=== PATIENT | female | born 1970 | race Caucasian/White ===

== ENCOUNTER 2020-07-27 11:22 | Outpatient (CLI) | payer OTHER, SELFPAY ==
--- NOTE | ~2020-07-27 | CT_ITS ---
EXAMINATION: CT abdomen pelvis wo con DATE: 07/27/2020 11:46 INDICATION: Acute left flank pain TECHNIQUE: Computed tomography (CT) of the abdomen and pelvis was performed without intravenous contr ast. The dose-length product (DLP) was 1043.48 mGy-cm. Automated exposure control and iterative recon struction technique were employed. COMPARISON: None FINDINGS: The heart size is normal. There is a 3 mm nodule of the right lower lobe, most likely old g ranulomatous disease. The gallbladder is surgically absent. Punctate calcifications in an otherwise n ormal spleen likely represent healed granulomatous disease. The liver, pancreas, and adrenal glands a re normal. The right kidney is unremarkable. There is a 7 mm stone in the lower pole of the left kidn ey. No stones are present in the ureters or bladder. There is no hydronephrosis or hydroureter. No pa thologically enlarged abdominal or pelvic lymph nodes are identified. There is no free intraperitonea l gas or evidence of bowel obstruction. There is mild lumbar spondylosis. IMPRESSION: 1. 7 mm stone in the lower pole of the left kidney. Reviewed, dictated and finalized at location B.
--- NOTE | ~2020-07-27 | XR_ITS ---
EXAMINATION: XR abdomen/kub 1V INDICATION: Left flank pain TECHNIQUE: Supine views of the abdomen were obtained on 2 radiographs. COMPARISON: None FINDINGS: A 7 mm stone is present in the lower pole of the left kidney. No additional abnormal calcif ications are identified. There are cholecystectomy clips in the right upper quadrant. The bowel gas p attern is normal. IMPRESSION: 1. Left nephrolithiasis. Reviewed, dictated and finalized at location B. IMPRESSION: 1. Left nephrolithiasis.
== END 2020-07-27 11:23 ==
PROVIDERS: Visit Provider Nurse Practitioner Family
DX: R10.9 Unspecified abdominal pain (principal); N20.0 Calculus of kidney; R39.15 Urgency of urination
CPT/HCPCS: 74018; 74176

== ENCOUNTER 2020-08-08 07:53 | Outpatient (CLI) | payer OTHER, SELFPAY ==
[2020-08-08 08:30] LABS: INR 0.9; Prothrombin Time 13.1 Seconds (11.1-14.7)
[2020-08-08 08:31] LABS: Partial Thromboplastin Time 30.7 SECONDS (22.3-36.8)
== END 2020-08-08 07:54 | disposition home or self-care (01) ==
LOC: ANHSURGERY 07:57
PROVIDERS: PCP Family Medicine; Visit Provider Urology
DX: Z01.812 Encounter for preprocedural laboratory examination (principal); N20.0 Calculus of kidney
CPT/HCPCS: 36415; 85610; 85730; 87077; 87086; 87088; 87186

== ENCOUNTER → 2020-08-09 00:36 | Outpatient (CLI) | payer OTHER, SELFPAY ==
[2020-08-09 20:46] LABS: SARS-CoV-2 RNA PCR Negative
== END ==
PROVIDERS: PCP Family Medicine; Visit Provider Urology
DX: Z01.812 Encounter for preprocedural laboratory examination (principal); Z20.822 Contact with and (suspected) exposure to COVID-19
CPT/HCPCS: C9803; U0003; U0005

== ENCOUNTER 2020-08-29 11:29 | Outpatient (CLI) | payer OTHER, SELFPAY ==
[2020-08-29 12:04] LABS: Prothrombin Time 13.7 Seconds (11.1-14.7)
[2020-08-29 12:05] LABS: Partial Thromboplastin Time 23.4 SECONDS (22.3-36.8)
== END 2020-08-29 11:30 | disposition home or self-care (01) ==
LOC: ANHSURGERY 11:33
PROVIDERS: PCP Family Medicine; Visit Provider Urology
DX: Z01.818 Encounter for other preprocedural examination (principal); N20.0 Calculus of kidney
CPT/HCPCS: 36415; 85610; 85730; 87086; 87088

== ENCOUNTER → 2020-08-30 04:46 | Outpatient (CLI) | payer OTHER, SELFPAY ==
[2020-08-30 20:06] LABS: SARS-CoV-2 RNA PCR Negative
== END ==
PROVIDERS: PCP Family Medicine; Visit Provider Urology
DX: Z01.818 Encounter for other preprocedural examination (principal); N20.0 Calculus of kidney
CPT/HCPCS: C9803; U0003; U0005

== ENCOUNTER 2020-09-02 03:24 | Day surgery (SDC) | payer OTHER, SELFPAY ==
[2020-08-01 09:41] VITALS: BMI 39.4
--- NOTE | 2020-08-19 09:53 | PC.NURSE ---
Pt states no changes in health history or medications since previous interview. New Covid date/time and pre-op instructions reviewed with pt. Pt denies any questions at this time.
--- NOTE | 2020-08-25 13:32 | PC.NURSE ---
Pt states no changes in health history since time of interview. Medications updated. New Covid date/time and pre-op instructions reviewed with pt. Pt denies any questions at this time.
--- NOTE | 2020-08-26 08:42 | P.HP_ITS ---
History of Present Illness History of Present Illness Consent: Risks, benefits, and alternatives have been discussed and questions answered. Patient agrees to proceed with procedure. Chief complaint: left renal stone Narrative: Naya May is a 50 year old female He was diagnosed with a kidney stone 5 years ago never sought treatment. She notably she has ever passed stone. She recently underwent evaluation for lower urinary tract symptoms. CT imaging shows a persistent 7 mm left lower pole calcified renal calculus. After discussion of options he has elected for ESWL. she is aware of the risk including, but not limited to, failure to completely eradicate stone, renal injury and perinephric hematoma. Review of Systems Cardiovascular: Cardiovascular: Denies chest pain, Denies lightheadedness, Denies palpitations and Denies dyspnea Respiratory: Respiratory: Denies dyspnea Gastrointestinal: Gastrointestinal: Denies diarrhea, Denies nausea and Denies vomiting Genitourinary: Genitourinary: Denies hematuria and Denies dysuria Endocrine: Endocrine: Denies palpitations [facility] Surgical History History of cholecystectomy History of partial hysterectomy Family History Family History Mother Family history of lung cancer Family history of malignant neoplasm of breast in first degree relative Hypertension Grandparent Family history of malignant neoplasm of breast Family history of malignant neoplasm of breast in first degree relative Sibling Depression Hypertension Father Hypertension Other Family history of allergic disorder Social History Social History Alcohol intake: current Drinks per week: 6 Substance use: never Substance use type: does not use Spiritual care concerns: No Meds Home Medications and Allergies Home Medications Medication Instructions Recorded Confirmed Type venlafaxine 150 mg 150 mg PO DAILY #30 cap 08/10/20 08/25/20 Rx capsule,extended release 24 hr sulfamethoxazole-trimethoprim 1 tablet PO DAILY 08/25/20 08/25/20 History Allergies Allergy/AdvReac Type Severity Reaction Status Date / Time codeine Allergy Unknown Itching Verified 08/25/20 13:32 Penicillins Allergy Unknown Skin Verified 08/25/20 13:32 Reaction venom-honey bee Allergy Unknown ANAPHYLAXIS Verified 08/25/20 13:32 Exam Const: General: no acute distress Resp: Effort & Inspection: normal respiratory effort GI: Inspection: non-distended GI Palp: No abdominal tenderness and No Guarding due to palpation present (GI) Auscultation: normal bowel sounds Assessment and Plan Assessment and plan (1) Left renal stone: Code(s): N20.0 - Calculus of kidney Status: Acute Assessment and Plan: * Left ESWL
--- NOTE | 2020-09-01 12:25 | WPDANESEPPF ---
Anes - Initial Pre Proc Eval Procedure: Operation Date: 09/02/20 09:30 Proposed Procedures p Left Renal Extracorporeal Shock Wave Lithotripsy - Dario Bourgeois MD Date/Time: 09/01/20 12:25 Surgeon: Dario Bourgeois MD Pre Op Diagnosis: left renal stone Patient Data Age: 50 Gender: F Height: 1.63 m Weight: 104.3 kg Allergies Allergy/AdvReac Type Severity Reaction Status Date / Time venom-honey bee Allergy Severe ANAPHYLAXIS Verified 09/02/20 07:41 codeine AdvReac Mild Itching Verified 09/02/20 07:41 Penicillins AdvReac Mild Skin Verified 09/02/20 07:41 Reaction Home Medications Medication Instructions Recorded Confirmed Type venlafaxine 150 mg 150 mg PO DAILY #30 cap 08/10/20 09/02/20 Rx capsule,extended release 24 hr sulfamethoxazole-trimethoprim 1 tablet PO DAILY 08/25/20 09/02/20 History Patient hx anesthesia problems: none Family hx anesthesia problems: none PMFSH Past Medical History Medical History (Updated 09/01/20 @ 12:25 by Adelso Thomas DO) Anxiety Depression Neuropathy Surgical History Surgical History History of cholecystectomy History of partial hysterectomy Family History Family History Mother Family history of lung cancer Family history of malignant neoplasm of breast in first degree relative Hypertension Grandparent Family history of malignant neoplasm of breast Family history of malignant neoplasm of breast in first degree relative Sibling Depression Hypertension Father Hypertension Other Family history of allergic disorder Social History Social History Alcohol intake: current Drinks per week: 6 Substance use: never Substance use type: does not use Living arrangements: with family Spiritual care concerns: No Anes - Eval Final PreProcedure Day of Procedure 09/01/20 12:25 Patient weight: obese Heart: regular rate and rhythm Lungs: clear to auscultation and normal air movement Airway: Mallampati scale class III Neurological: alert and oriented Last oral intake: >/= 8 hours ASA classification: III Emergent: no Anesthetic plan: proceed Anesthesia type and monitoring: general LMA and standard monitoring Informed Consent: The patient's anesthetic plan and its attendant risks and benefits were discussed with the patient/family/POA. Questions were solicited and answers provided to the satisfaction of the patient/family/POA.
[2020-09-02] VITALS (7 sets, daily range): BP systolic 102–131; BP diastolic 70–84; PULSE 67–91; RESP 10–20; TEMP 36.3–36.6; O2SAT 98–100
--- NOTE | ~2020-09-02 | XR_ITS ---
EXAMINATION: XR abdomen/kub 1V DATE: 09/02/2020 07:35 INDICATION: Left kidney stone. TECHNIQUE: A supine view of the abdomen on 2 radiographs was obtained. COMPARISON: CT abdomen and pelvis 07/27/2020 FINDINGS: There are no dilated loops of bowel. Surgical clips in the right upper quadrant are likely from cholecystectomy. There is a 6 mm stone in left kidney. IMPRESSION: 1. 6 mm stone in left kidney. Reviewed, dictated and finalized at location A.
--- NOTE | 2020-09-02 07:13 | WPDHPUPDATE1 ---
History and Physical Update Update Date/Time: 09/02/20 07:13 History and Physical has been reviewed, including an updated exam of the patient. There are NO changes in the patient's condition. Risks, benefits, and alternatives have been discussed and questions answered. Patient agrees to proceed with procedure.
[2020-09-02] MEDS: LACTATED RINGERS 1,000 ML 30 ML IV CONT ×2 (07:55→11:21)
[2020-09-02] MEDS: ceFAZolin 2 GM/D5W 50 ML 2 GM/50 ML BAG IVPB (09:57)
--- NOTE | 2020-09-02 10:17 | PM.PROC ---
Procedure Note - Detailed Date of procedure: 09/02/20 Pre-op diagnosis: left renal stone Post-op diagnosis: same Procedure performed: Left ESWL Description of procedure: The patient was brought to the operative suite where she was placed in the supine position on the Dornier lithotripsy table. The focal point of the lithotripter was placed at a 8mm calculus. A total of 2500 shocks were delivered at a power setting of 4. There appeared to be good fragmentation of the stone. The patient tolerated the procedure well and was taken to the recovery room in good condition. Anesthesia: GLMA Surgeon: Dario Bourgeois MD Estimated blood loss (mL): 0 Drains: No Packing: No Pathology: none sent Complications: No immediate complications Condition: stable Disposition: PACU
[2020-09-02] MEDS: fentaNYL CITRATE INJ (*CRX) 100 MCG/2 ML VIAL 25 MCG IV PUSH ×3 (10:59→11:08)
[2020-09-02] MEDS: oxyCODONE HCL (*CRX) 5 MG TAB IR PO (12:06)
== END 2020-09-02 12:40 | disposition home or self-care (01) ==
PROVIDERS: PCP Family Medicine; Visit Provider Urology
PROC: (CPT 50590; principal; 2020-09-02 09:30)
DX: N20.0 Calculus of kidney (principal); G62.9 Polyneuropathy, unspecified; F41.8 Other specified anxiety disorders; E66.9 Obesity, unspecified; Z68.41 Body mass index [BMI] 40.0-44.9, adult
CPT/HCPCS: 50590; 36415; 74018; 85610; 85730; 87077; 87086; 87088; 87186; A9270; C9803; J0690; J1100; J2250; J2405; J2704; J3010; J7120; U0003; U0005

== ENCOUNTER 2020-09-20 12:31 | Outpatient (CLI) | payer OTHER, SELFPAY ==
--- NOTE | ~2020-09-20 | XR_ITS ---
XR abdomen/kub 1V 09/20/2020 13:30 INDICATION: Left flank pain TECHNIQUE: KUB COMPARISON: 09/02/2020 FINDINGS: Bowel gas pattern is normal. There is no evidence of free air, mass, organomegaly, ascites or obstruction. No abnormal calculi are seen. The bones appear intact. IMPRESSION: 1: No acute abdominal abnormality identified. Reviewed, dictated and finalized at location B.
== END 2020-09-20 12:32 ==
PROVIDERS: Visit Provider Urology
DX: R10.9 Unspecified abdominal pain (principal)
CPT/HCPCS: 74018

== ENCOUNTER 2023-08-13 15:39 | Observation (INO) | payer BC, SELFPAY ==
--- NOTE | ~2023-08-13 | MR_ITS ---
MRI of the brain Clinical History: Aphasia Technique: Axial and sagittal T1-weighted images were acquired. These were followed by axial T2-weigh brayden, diffusion weighted, gradient, and FLAIR images. Following intravenous administration of 20 cc Mu ltiHance gadolinium, T1-weighted fat-sat imaging was performed in the axial and coronal planes. Findings: No significant signal abnormality seen in the brain parenchyma. No acute infarct, intracran ial hemorrhage, or mass lesion. Ventricles and subarachnoid spaces are unremarkable. Orbits are unremarkable. Paranasal sinuses and m astoid air cells are clear. Major intracranial flow voids appear intact. Sagittal midline structures are intact. No abnormal postcontrast enhancement identified. IMPRESSION: Normal exam. Reviewed, dictated and finalized at location M. IMPRESSION: Normal exam.
--- NOTE | ~2023-08-13 | CT_ITS ---
EXAMINATION: CTA brain carotid DATE: 08/13/2023 18:56 INDICATION: dysarthria TECHNIQUE: Computed tomographic angiography (CTA) of the head was performed without and with 100 mL O mnipaque-350 intravenous contrast. CTA of the neck was performed with intravenous contrast. Automated exposure control and iterative reconstruction technique were employed. The dose-length product was 1 651.14 mGy-cm. Maximum intensity projection 3D-reconstructions were created by the technologist on a separate workstation. COMPARISON: None. FINDINGS: CT BRAIN: No acute large vessel infarct, intracranial hemorrhage, mass, or hydrocephalus. CTA HEAD: No large vessel occlusion, aneurysm, high flow vascular malformation, nidus or extravasation. Symmetr ic parenchymal enhancement. Patent cerebral veins. CTA NECK: Aortic arch and proximal great vessels: Bovine arch. Right common carotid, carotid bifurcation, and internal carotid artery: No plaque.There is 0% stenosi s of the proximal right internal carotid artery relative to normal distal artery lumen diameter (NASC ET criteria). Left common carotid, carotid bifurcation, and internal carotid artery: No plaque.There is 0% stenosis of the proximal left internal carotid artery relative to normal distal artery lumen diameter (NASCET criteria). Vertebral arteries: No significant plaque or stenosis. Other findings: Cervical lymphadenopathy. Degenerative changes in the cervical spine. IMPRESSION: No acute intracranial process. No large vessel intracranial occlusion, high-grade intracranial stenosis, or aneurysm. No carotid or vertebral artery occlusion, dissection, or significant stenosis. Reviewed, dictated and finalized at location K. IMPRESSION: No acute intracranial process. No large vessel intracranial occlusion, high-grade intracranial stenosis, or an eurysm. No carotid or vertebral artery occlusion, dissection, or significant stenosis.
--- NOTE | ~2023-08-13 | XR_ITS ---
EXAMINATION: XR chest 2V DATE: 08/13/2023 16:16 INDICATION: Chest pain. TECHNIQUE: Frontal and lateral views of the chest were obtained. COMPARISON: None. FINDINGS: A calcified right lung nodule and calcified right hilar lymph nodes are consistent with old granulomatous disease. No pleural effusion or pneumothorax. The heart size is normal. Surgical clips in the right upper quadrant are likely from cholecystectomy. IMPRESSION: 1. No acute cardiopulmonary disease. Reviewed, dictated and finalized at location A.
--- NOTE | 2023-08-13 15:42 | ECG_ITS ---
SEE SCANNED COPY FOR CONFIRMED REPORT MTDD
[2023-08-13 15:44] VITALS: BP 116/80; PULSE 100; RESP 17; TEMP 36.5; O2SAT 98
[2023-08-13 15:59] LABS: Basophils Absolute Auto 0.1 K/mm3 (0.0-0.1); Basophils Percent Auto 0.6 % (0.2-1.2); Eosinophils Absolute Auto 0.2 K/mm3 (0-0.3); Eosinophils Percent Auto 2.5 % (0-4.4); Hematocrit 43.7 % (37.0-47.0); Hemoglobin 14.4 g/dL (12.0-15.0); Immature Granulocyte Absolute 0.02 K/mm3 (0.00-0.031); Immature Granulocyte Percent A 0.2 % (0-0.5); Lymphocytes Absolute Auto 2.41 K/mm3 (0.9-3.2); Lymphocytes Percent Auto 27.2 % (18.3-44.2); Mean Corpuscular Hemoglobin 30.5 pg (26-34); Mean Corpuscular Volume 92.6 fl (80-100); Mean Platelet Volume 10.1 fl (7.4-10.4); Monocytes Absolute Auto 0.7 K/mm3 (0.1-0.6); Monocytes Percent Auto 7.8 % (2.6-8.5); Neutrophils Absolute Auto 5.5 K/mm3 (1.3-6.7); Neutrophils Percent Auto 61.7 % (45.5-73.1); Platelet Count Result 377 k/mm3 (150-375); Red Blood Count 4.72 M/mm3 (4.2-5.4); Red Cell Distribution Width 13.8 % (11.5-14.5); White Blood Count 8.9 K/mm3 (4.5-10.0)
[2023-08-13 16:11] LABS: INR 0.9; Partial Thromboplastin Time 24.9 Seconds (22.3-36.8); Prothrombin Time 12.9 Seconds (11.1-14.7)
[2023-08-13 16:12] LABS: Alanine Aminotransferase 33 U/L (6-35); Albumin Level 4.9 g/dL (3.5-5.1); Alkaline Phosphatase 92 U/L (38-126); Anion Gap 10 mmol/L (4-12); Aspartate Amino Transferase 33 U/L (14-36); Bilirubin,Total 0.4 mg/dL (0.2-1.3); Blood Urea Nitrogen 25 mg/dL (7-17); Calcium 9.4 mg/dL (8.4-10.2); Carbon Dioxide 19 mmol/L (22-30); Chloride 111 mmol/L (98-107); Estimated CRCL calculation 77 ml/min; Estimated Glomerular Filt Rate > 60; Glucose 121 mg/dL (65-110); Lipase 185 U/L (23-300); Sodium 140 mmol/L (137-145)
[2023-08-13 16:57] LABS: Troponin I < 0.012 ng/mL (0.000-0.034)
--- NOTE | 2023-08-13 18:11 | ED.GENADULT ---
HPI - General Adult General Chief complaint: Chest Pain <Nereyda Miranda August, CHILLER OPERATOR - Last Filed: 08/13/23 19:44> Stated complaint: CHEST PAIN <Nereyda Miranda August, CHILLER OPERATOR - Last Filed: 08/13/23 19:44> Time Seen by Provider: 08/13/23 18:11 <Nereyda Miranda August, CHILLER OPERATOR - Last Filed: 08/13/23 19:44> Focused HPI: Naya May is a 53 y/o female who presents [facility] reports of being out of sorts around [id number] today where she states that her words aren't coming out right. She states that she couldn't form a sentence at all earlier today, symptoms have been improving but then she also thinks they have been off and on. She states that she was also having major chest pains today at around 1430 today and then felt like she was going to puke and she vomited X 1 GENERAL: Well-appearing, well-nourished, and in no acute distress. HEAD: Normocephalic, atraumatic. CHEST: Clear to auscultation. ?No respiratory distress. HEART: Regular rate and rhythm.? NEURO: ?Alert and oriented x4/ no focal deficits on exam Patient screened in triage and initial orders placed.? ?Additional care and disposition to be based upon?diagnostic testing and treatment. <Nereyda Miranda August, CHILLER OPERATOR - Last Filed: 08/13/23 19:44> Focused HPI: 53-year-old female presenting with word-finding difficulty since 10:30 a.m. @ 10:30 a.m. she was trying to take the cover off her Jeep. She was confused and having difficulty figuring out how to take it off despite doing it many times in the past. She is also having difficulty speaking to her and friends. She is also said that she has had trouble using her cell phone. At 12:30 p.m. she had an episode of chest pain and vomiting. She then came to the hospital for evaluation this evening. Patient started taking topiramate for weight loss yesterday. She has taken it in the pass without problems. GENERAL: Well-appearing, well-nourished, and in no acute distress. HEAD: Normocephalic, atraumatic. CHEST: Clear to auscultation. ?No respiratory distress. HEART: Regular rate and rhythm.? NEURO: ?Alert and oriented x4/ no focal deficits on exam Patient screened in triage and initial orders placed.? ?Additional care and disposition to be based upon?diagnostic testing and treatment. <Shane Patterson MD - Last Filed: 08/13/23 23:27> Related Data Allergies/adverse reactions: Allergies Allergy/AdvReac Type Severity Reaction Status Date / Time No Known Allergies Allergy Verified 08/13/23 15:48 <Nereyda Sandhu APRN - Last Filed: 08/13/23 19:44> Exam Narrative: APPEARANCE: No apparent distress. Head: atraumatic. EYES: EOMI, NOSE: Atraumatic NECK: Trachea midline RESPIRATORY: No increased rate of breathing CARDIOVASCULAR: RRR, ABDOMINAL: Non-distended MUSCULOSKELETAl: No obvious deformities NEURO: Alert. Cranial nerves 2-12 grossly intact. Sensation light touch, motor function cerebellar function intact for 4 extremities. Gait exam was normal. SKIN:: Warm, dry. Normal color PSYCHIATRIC: Normal affect NIH Stroke Scale/Score (NIHSS) from [email or web address] on 08/13/2023 All calculations should be rechecked by clinician prior to use RESULT SUMMARY: 1 points NIH Stroke Scale INPUTS: 1A: Level of consciousness ?> 0 = Alert; keenly responsive 1B: Ask month and age ?> 0 = Both questions right 1C: 'Blink eyes' & 'squeeze hands' ?> 0 = Performs both tasks 2: Horizontal extraocular movements ?> 0 = Normal 3: Visual leon ?> 0 = No visual loss 4: Facial palsy ?> 0 = Normal symmetry 5A: Left arm motor drift ?> 0 = No drift for 10 seconds 5B: Right arm motor drift ?> 0 = No drift for 10 seconds 6A: Left leg motor drift ?> 0 = No drift for 5 seconds 6B: Right leg motor drift ?> 0 = No drift for 5 seconds 7: Limb Ataxia ?> 0 = No ataxia 8: Sensation ?> 0 = Normal; no sensory loss 9: Language/aphasia ?> 1 = Mild-moderate aphasia: some obvious changes, without significant limitation 10: Dysarthria ?> 0 = Normal 11: Extinction/inattent
[2023-08-13 19:11] LABS: Troponin I < 0.012 ng/mL (0.000-0.034)
[2023-08-13] MEDS: Please add drug allergy info to patient profile. 1 EACH XX (19:49)
[2023-08-13 19:50] VITALS: PULSE 88; O2SAT 100
[2023-08-13 19:51] VITALS: O2SAT 100
[2023-08-13 21:15] VITALS: BP 146/95; PULSE 94; RESP 16; O2SAT 98
--- NOTE | 2023-08-13 21:44 | ECG_ITS ---
SEE SCANNED COPY FOR CONFIRMED REPORT MTDD
[2023-08-13 22:16] LABS: Ethanol < 10 mg/dL (<10)
[2023-08-13 22:23] LABS: Amphetamine Screen Urine Negative (Negative); Barbiturate Screen Urine Negative (Negative); Benzodiazepines Screen Urine Negative (Negative); Cannabinoid Screen Urine Negative (Negative); Cocaine Screen Urine Negative (Negative); Methadone Screen Urine Negative (Negative); Opiate Screen Urine Negative (Negative); Phencyclidine Screen Urine Negative (Negative)
[2023-08-13 22:31] LABS: Troponin I < 0.012 ng/mL (0.000-0.034)
[2023-08-13 23:26] VITALS: BP 131/87; PULSE 89; RESP 16; O2SAT 98
[2023-08-14] VITALS (8 sets, daily range): BP systolic 116–141; BP diastolic 71–95; PULSE 78–104; RESP 16–20; TEMP 35.8–36.6; O2SAT 98–100; BMI 41.8; BMI 41.9
[2023-08-14] MEDS: Please add drug allergy info to patient profile. 1 EACH XX (00:03)
--- NOTE | 2023-08-14 01:13 | ADMGEN ---
This patient, Naya May, was admitted to [facility] Surg Room 312-01. Patient/family oriented to hospital policies and general routines including ID bracelet, bed and alarms, visiting hours, pain management, procedures, bathroom and other care routines, personal items, smoking policy, room service/diet, and visiting hours. Information on how to activate the Rapid Response Team has been discussed. Patient/Family are encouraged to report perceived risks to care and to ask questions if they do not understand what they are told or what they should do.
--- NOTE | 2023-08-14 06:00 | ECHO_ITS ---
Patient Info Name: Naya May Age: 53 years : 1970 Gender: Female Ht: 64 in Wt: 240 lbs BSA: 2.27 m2 HR: 70 bpm BP: 116 / 71 mmHg Heart Rhythm: Sinus Rhythm Technical Quality: Good Exam Date: 08/14/2023 9:17 AM Exam Location: Echo Lab Patient Status: Outpatient Admit Date: 08/13/2023 Staff Ordering Physician: Shane Patterson MD Community Development Manager: Abhishek Gatica RDCS Attending Provider: Jamia Flores DO Referring Physician: Yesenia STRANGE; Exam Type: CA echo doppler w bubble study Study Info Indications - aphasia Complete two-dimensional, color flow and Doppler transthoracic echocardiogram is performed with agitated saline. Summary 1. Left ventricular chamber dimension is normal. 2. Left ventricular systolic function is normal, estimated at 60-65%. 3. The left ventricular diastolic function is grade I diastolic dysfunction. 4. Right ventricular systolic function is normal. 5. Bubble study shows a large right to left interatrial shunt, consistent with PFO/ASD. . 6. No significant valvular disease. Left Ventricle Left ventricular chamber dimension is normal. Left ventricular systolic function is normal, estimated at 60-65%. There is no increased left ventricular wall thickness. The left ventricular diastolic function is grade I diastolic dysfunction. Right Ventricle Right ventricular chamber dimension is normal. Right ventricular systolic function is normal. Left Atria Left atrial chamber dimension is normal. Right Atria Right atrial chamber dimension is normal. Atrial Septum Bubble study shows a large right to left interatrial shunt, consistent with PFO/ASD. . Aortic Valve The aortic valve is probable trileaflet. There is no aortic valve stenosis. There is no aortic valve regurgitation. Pulmonic Valve The pulmonic valve is not well visualized. Mitral Valve There is trace mitral valve regurgitation. Tricuspid Valve There is trace tricuspid valve regurgitation. Pericardium/Pleural There is no pericardial effusion. Inferior Vena Cava Inferior vena cava is not well visualized. Aorta The aortic root size at the sinus of Valsalva is normal. Left Ventricular Outflow Tract Name Value Normal LVOT 2D LVOT Diameter 1.8 cm LVOT Doppler LVOT Peak Gradient 5 mmHg LVOT Mean Gradient 2 mmHg LVOT VTI 23 cm LVOT VTI/AV VTI Ratio 0.8 LVOT Stroke Volume 59 ml LVOT CO 4.3 l/min LVOT CI 1.9 l/min/m2 Pulmonic Valve Name Value Normal RVOT Doppler RVOT Peak Gradient 3 mmHg PV Doppler PV Peak Gradient 3 mmHg Mitral Valve Nam
--- NOTE | 2023-08-14 08:39 | PM.IMHP ---
H&P: HPI History of Present Illness Date/Time: 08/14/23 08:39 Chief Complaint: aphasia chest pain Narrative: Around 10 am yesterday had an episode where she states that her words were not coming out right. She couldn't form a sentence at all, had an episode of chest pain with vomiting x 1. She has a h/o small fiber neuropathy- dx at [facility] while ago- used to be on teresa but stopped as didnot like side effects. H/o LULY- was on effexor for about 20 years- was weaned off of it per her weight loss dc- not on any therapy now. Review of Systems Constitutional: Constitutional: Reports as per HPI Eyes: Eyes: Reports no additional eye complaints Cardiovascular: Cardiovascular: Reports chest pain Comments: chest pain x 1 with an episode of vomiting. Respiratory: Respiratory: Reports no additional respiratory complaints, Denies chest congestion, Denies cough and Denies dyspnea Gastrointestinal: Comments: midsternal discomfort but denies any h/o GERD Genitourinary: Genitourinary: Denies hematuria, Denies urinary frequency and Denies nocturia Musculoskeletal: Musculoskeletal: Reports no additional musculoskeletal complaints Integumentary/Breasts: Skin/Breast: Reports system reviewed and no additional complaints, except as docu Neurologic: Reports Abnormal speech present and Reports confusion Comments: reports unable to do her basic task at home Psychiatric: Psychiatric: Reports anxiety Comments: h/o LULY- used to be on effexor for over 20 years- but weaned off PMFSH Past Medical History Medical History (Updated 08/14/23 @ 10:47 by Kiesha Harvey APRN) Small fiber neuropathy Social History Social History Smoking status: Never smoker Second hand tobacco smoke exposure: Yes (past) Alcohol intake: current Drinks per week: 12 Substance use: current Substance use type: marijuana Other substance usage details: edibles Last use: 07/24/23 Do You Feel Safe in your Home?: Yes Lack of Transportation: No Lack of Food: Never True Current Housing: I Do Not Have Housing Concerned About Future Housing: No Difficulty Paying Gas/Electric Bills: No Difficulty Paying for Meds: No Currently Unemployed: No Education: High School Diploma/GED Difficulty w/ Childcare or Family Care: No Spiritual care concerns: No Meds Home Medications and Allergies Home Medications Medication Instructions Recorded Confirmed Type No Home Medications 08/14/23 08/14/23 History Allergies Allergy/AdvReac Type Severity Reaction Status Date / Time Penicillins Allergy Rash Verified 08/14/23 06:58 Vital Signs Vital Signs - 24 hr 08/13/23 15:44 08/13/23 19:50 08/13/23 19:50 Temperature 97.7 F Pulse Rate 100 88 Respiratory Rate 17 Blood Pressure 116/80 Pulse Oximetry 98 100 Oxygen Delivery Room Air Room Air 08/13/23 19:51 08/13/23 21:15 08/13/23 23:26 Temperature Pulse Rate 94 89 Respiratory Rate 16 16 Blood Pressure 146/95 H 131/87 Pulse Oximetry 100 98 98 Oxygen Delivery Room Air 08/14/23 00:00 08/14/23 04:00 08/14/23 04:00 Temperature 97.2 F L 97.2 F L Pulse Rate 84 82 78 Respiratory Rate 16 18 Blood Pressure 125/78 116/71 Pulse Oximetry 98 100 Oxygen Delivery 08/14/23 08:00 Temperature 97.8 F Pulse Rate 78 Respiratory Rate 18 Blood Pressure 136/93 H Pulse Oximetry 100 Oxygen Delivery Exam Const: General: comfortable Other: emotional Eyes: General: appearance normal, both eyes and all related structures Chest: Other: WNL Resp: Effort & Inspection: normal respiratory effort Cardio: Rate: regular rate Rhythm: regular rhythm GI: GI Palp: Yes Soft to palpation and No Tenderness to palpation present (GI) Auscultation: normal bowel sounds Skin: General skin exam: normal color Lesions: no lesions noted Rashes: no rashes noted Neuro: Speech
--- NOTE | 2023-08-14 11:51 | WPDNEURCNPN ---
Assessment and Plan Assessment and plan (1) Aphasia: Code(s): R47.01 - Aphasia Status: Acute (2) Small fiber neuropathy: Code(s): G62.9 - Polyneuropathy, unspecified Status: Acute Plan 1. Considering the possibility of TIA when the discussion was made with the patient that with a basic workup is done to rule out any possibility of the further problems down the line if all the studies come back normal we can discuss the possibility of only TIA and treat her accordingly by this time she was more spontaneous her eyes became teary and her said if everything comes back negative what will be due. I advised them if everything is negative she should be followed by the physician with the possibility of the TIA versus simply anxiety and early depression at that time she became more tear again the of complete the whole workup and follow accordingly. She might benefit from from the follow-up with 1 physician. Consult date: 08/14/23 HPI: Naya May is a 53 year old female admitted to the hospital through the emergency room the information that between 10:30 a.m. to 11:00 a.m. her words were not coming out right she was unable to form the sentences to the symptomatology has been improving he still not thinking straight she also complained of chest pain, initial evaluation in the emergency room was grossly nonfocal, she was not allergic to any medication, her vital signs were normal, she was admitted to the hospital with the possibility of TIA her routine lab studies were normal drug screen was negative initial chest x-ray was negative, head neck CTA was negative with no evidence of bleed or leaking aneurysm and subsequently brain MRI is normal PMFSH Past Medical History Medical History Small fiber neuropathy Social History Social History Smoking status: Never smoker Second hand tobacco smoke exposure: Yes (past) Alcohol intake: current Drinks per week: 12 Substance use: current Substance use type: marijuana Other substance usage details: edibles Last use: 07/24/23 Do You Feel Safe in your Home?: Yes Lack of Transportation: No Lack of Food: Never True Current Housing: I Do Not Have Housing Concerned About Future Housing: No Difficulty Paying Gas/Electric Bills: No Difficulty Paying for Meds: No Currently Unemployed: No Education: High School Diploma/GED Difficulty w/ Childcare or Family Care: No Spiritual care concerns: No Meds Home Medications and Allergies Home Medications Medication Instructions Recorded Confirmed Type No Home Medications 08/14/23 08/14/23 History Allergies Allergy/AdvReac Type Severity Reaction Status Date / Time Penicillins Allergy Rash Verified 08/14/23 06:58 Vital Signs Vital Signs - 24 hr 08/13/23 15:44 08/13/23 19:50 08/13/23 19:50 Temperature 36.5 C Pulse Rate 100 88 Respiratory Rate 17 Blood Pressure 116/80 Pulse Oximetry 98 100 Oxygen Delivery Room Air Room Air 08/13/23 19:51 08/13/23 21:15 08/13/23 23:26 Temperature Pulse Rate 94 89 Respiratory Rate 16 16 Blood Pressure 146/95 H 131/87 Pulse Oximetry 100 98 98 Oxygen Delivery Room Air 08/14/23 00:00 08/14/23 04:00 08/14/23 04:00 Temperature 36.2 C L 36.2 C L Pulse Rate 84 82 78 Respiratory Rate 16 18 Blood Pressure 125/78 116/71 Pulse Oximetry 98 100 Oxygen Delivery 08/14/23 08:00 08/14/23 08:15 Temperature 36.6 C Pulse Rate 78 Respiratory Rate 18 Blood Pressure 136/93 H Pulse Oximetry 100 Oxygen Delivery Room Air Exam Narrative: exam today reveals her to be awake alert cooperative in no obvious acute distress initially she was very communicative without evidence of dysphagia or dysarthria but subsequently when all the pros and cons of the person presenting symptom were discussed with her
--- NOTE | 2023-08-14 15:22 | PM.DS ---
DS: Admitting Diagnosis Discharge Date 08/15/23 Admitting Diagnosis aphasia DS: Discharge Diagnosis Discharge Diagnosis (1) Aphasia: Code(s): R47.01 - Aphasia Status: Acute (2) Chest pain: Code(s): R07.9 - Chest pain, unspecified Status: Acute (3) LULY (generalized anxiety disorder): Code(s): F41.1 - Generalized anxiety disorder Status: Acute Plan 1. Aphasia TIA vs LULY/panic vs other eeg in am- then d/c home lipid profile ordered- will calculate ASCVD risk and order statin if indicated start 81 mg ASA follow up with neurology 2. Chest pain cardiac work up negative could be LULY/panic related vs GERD establishing with PCP at [facility]- has an yandy in august -asa 81 mg 3. LULY - need to f/u with new PCP 4. Alcohol use - advised 1 drink a day recommendation - need to cut down- counselling provided DS: Summary Hospital Course Hospital Course: ASCVD risk is 1.4%. OK to hold statin for now but will start on 81 mg ASA. need to work on risk reduction: limit/eliminate alcohol consumption, Mediterranean diet- prioritize healthy fats: fish, avocado, olive oil, add fruits/veggies to diet, 150-300 min of purposeful physical activity a week, lose weight. Status at Discharge Functional status at discharge: independent ambulation Overall status at discharge: patient is back to baseline Time Spent with Patient Time attestation: Total time spent providing and/or coordinating discharge services: Exam Narrative: pt is alert, oriented, no neuro deficit Const: General: comfortable Eyes: General: appearance normal, both eyes and all related structures Resp: Effort & Inspection: normal respiratory effort Cardio: Rate: regular rate Rhythm: regular rhythm GI: GI Palp: Yes Soft to palpation, No Tenderness to palpation present (GI) and No Guarding due to palpation present (GI) Auscultation: normal bowel sounds Skin: General skin exam: normal color Lesions: no lesions noted Neuro: Motor exam (neuro): Normal motor muscle tone present throughout Sensory Exam: normal sensation Extrem: General: normal to inspection Psych: Mental Status: mental status grossly normal DS: Data Data Completed and Pending Completed studies during hospitalization: EEg, MRI, CTA, ECHO Pending studies at discharge: none Labs on day of discharge: Labs from last 24 hours 08/14/23 08/13/23 08/13/23 15:11 22:01 18:42 WBC RBC Hgb Hct MCV MCH MCHC RDW Plt Count MPV Immature Gran % (Auto) Neut % (Auto) Lymph % (Auto) [place] % (Auto) Eos % (Auto) Baso % (Auto) Lymph # (Auto) [place] # (Auto) Eos # (Auto) Baso # (Auto) Abs Immat Gran (auto) Absolute Neuts (auto) Absolute Nucleated RBC Nucleated RBC % PT INR APTT Sodium Potassium Chloride Carbon Dioxide Anion Gap BUN Creatinine Estim Creat Clear Calc Estimated GFR Glucose Calcium Total Bilirubin AST ALT Alkaline Phosphatase Troponin I < 0.012 < 0.012 Total Protein Albumin Triglycerides Pending Cholesterol Pending LDL Cholesterol Direct Pending HDL Direct Pending Lipase Urine Opiates Screen Negative Urine Methadone Screen Negative Ur Barbiturates Screen Negative Ur Phencyclidine Scrn Negative Ur Amphetamine Screen Negative U Benzodiazepines Scrn Negative Urine Cocaine Screen Negative U Cannabinoids Screen Negative Ethyl Alcohol < 10 08/13/23 15:54 WBC 8.9 RBC 4.72 Hgb 14.4 Hct 43.7 MCV 92.6 MCH 30.5 MCHC 33.0 RDW 13.8 Plt Count 377 H MPV 10.1 Immature Gran % (Auto) 0.2 Neut % (Auto) 61.7 Lymph % (Auto) 27.2 [place] % (Auto) 7.8 Eos % (Auto) 2.5 Baso % (Auto) 0.6 Lymph # (Auto) 2.41 [place] # (Auto) 0.7 H Eos # (Auto) 0.2 Baso # (Auto) 0.1 Abs Immat Gran (auto) 0.02 Absolute Neuts (auto) 5.5 Absolute Nucleated RB
[2023-08-14 15:33] LABS: Cholesterol 202 mg/dL (0-200); HDL Direct 65 mg/dL; Triglycerides 125 mg/dL (<150)
[2023-08-14] MEDS: ACETAMINOPHEN/ASPIRIN/CAFFEINE 250-250-65 MG TABLET 1 TABLET PO (15:42)
[2023-08-14 15:44] LABS: LDL Cholesterol Direct 110 mg/dL
[2023-08-15] VITALS: PULSE 84
[2023-08-15 00:50] VITALS: BP 144/83; PULSE 75; RESP 18; TEMP 35.9; O2SAT 100
[2023-08-15 04:00] VITALS: PULSE 75
[2023-08-15 05:20] VITALS: BP 130/94; PULSE 80; RESP 16; TEMP 36.3; O2SAT 98
[2023-08-15 08:02] VITALS: PULSE 81
[2023-08-15 08:54] VITALS: O2SAT 100
--- NOTE | 2023-08-15 09:44 | WPDNEUROPN ---
Progress Note: A&P Assessment and Plan (1) Aphasia: Code(s): R47.01 - Aphasia Status: Acute (2) Chest pain: Code(s): R07.9 - Chest pain, unspecified Status: Acute Subjective Date/time seen: 08/15/23 09:44 Interval history: Patient with transient episode of word finding difficulty that self-resolved. MRI brain was unrevealing. She had started Topamax at the time so possible medication effect. No loss of consciousness or alteration in awareness. Echo showed large PFO so TIA is certainly a possibility as well. She was started on aspirin 81mg daily. Called hospitalist and let her know the echo results. There were also reports of chest pain in her chart so I had recommended Cardiology consult. By the time of my rounds, patient had already been discharged. RN reports that patient was made aware of the echo findings and was referred to Cardiology as outpatient. Objective Data Vital Signs Vital Signs: Vital Signs - 24 hr 08/14/23 11:56 08/14/23 12:00 08/14/23 16:00 Temperature 36.3 C L 36.3 C L Pulse Rate 90 104 H 89 Respiratory Rate 20 20 Blood Pressure 126/94 H 123/88 Pulse Oximetry 100 100 Oxygen Delivery 08/14/23 16:00 08/14/23 20:15 08/14/23 20:00 Temperature 35.8 C L Pulse Rate 80 92 Respiratory Rate 16 Blood Pressure 141/95 H Pulse Oximetry 99 Oxygen Delivery Room Air 08/14/23 20:00 08/15/23 00:00 08/15/23 00:50 Temperature 35.9 C L Pulse Rate 84 84 75 Respiratory Rate 18 Blood Pressure 144/83 H Pulse Oximetry 100 Oxygen Delivery 08/15/23 04:00 08/15/23 05:20 08/15/23 08:54 Temperature 36.3 C L Pulse Rate 75 80 Respiratory Rate 16 Blood Pressure 130/94 H Pulse Oximetry 98 100 Oxygen Delivery Room Air 08/15/23 08:00 Temperature Pulse Rate Respiratory Rate Blood Pressure Pulse Oximetry Oxygen Delivery Room Air Intake/Output Intake/Output: Intake & Output 08/12/23 08/13/23 08/14/23 08/15/23 23:59 23:59 23:59 23:59 Intake Total 720 711 Balance 720 711 Meds/Results Medications: Active Medications Generic Name Dose Route Start Last Admin Trade Name Jimboq PRN Reason Stop Dose Admin Acetaminophen/Aspirin/Caffeine 1 tablet 08/14/23 15:31 08/14/23 15:42 Acetaminophen/Aspirin/Caffeine 250-250-65 Mg Tablet PO 1 tablet Q6H PRN Administration Pain Rated 1-3 Miscellaneous Information 1 each 08/13/23 00:01 08/15/23 00:41 Please Add Drug Allergy Info To Patient Profile. XX 09/12/23 00:00 Not Given CLARIFY GHAZALA Perflutren Lipid Microsphere 0 ml 08/13/23 23:22 Perflutren Lipid Microspheres 1.5 Ml Vial Diluted To 10 Ml Total Volume IV PUSH 08/16/23 23:24 ONCE PRN adequate visualization Protocol Radiology Results: ITS Impressions Chest X-Ray 08/13/23 16:17 IMPRESSION: 1. No acute cardiopulmonary disease. Head/Neck CTA 08/13/23 19:12 IMPRESSION: No acute intracranial process. No large vessel intracranial occlusion, high-grade intracranial stenosis, or aneurysm. No carotid or vertebral artery occlusion, dissection, or significant stenosis. Brain MRI 08/14/23 07:02 IMPRESSION: Normal exam. Labs Labs: Laboratory Results - last 24 hr 08/14/23 15:11 Triglycerides 125 Cholesterol 202 H LDL Cholesterol Direct 110 HDL Direct 65
--- NOTE | 2023-08-15 10:16 | PC.NURSE ---
patient aware of echo results that show possible large PFO, encouragad to f/u with [facility] outpatient. IV out, at bedside. papers signed, denies any questions.
--- NOTE | 2023-08-18 12:31 | WPDNEUROLOGY ---
Neurology EEG Report General Information Date of Study: 08/15/23 TEST Routine EEG DIAGNOSIS Aphasia CONDITION OF RECORDING Awake and drowsy EEG NUMBER 24-12 CLINICAL HISTORY Patient with transient episode of word finding difficulty that self-resolved. MRI brain was unrevealing. EEG DESCRIPTION During the awake state with eyes closed the background consists of 9 Hz posterior dominant rhythm which attenuates appropriately with eye opening. The recording is continuous. There is a well developed anterior-posterior gradient. No significant asymmetries of background activities are noted. With drowsiness there is waxing and waning of the dominant rhythm with eventual replacement by a mixture of beta, alpha, and theta activity. Patient does not enter stage II sleep. There are no epileptiform discharges or seizures noted during this recording. IMPRESSION This is a normal routine EEG recorded in awake and drowsy states. There are no electrographic seizures identified, nor are there any epileptiform discharges. Please note that a normal EEG cannot exclude a seizure disorder. Clinical correlation is recommended.
== END 2023-08-15 10:30 | disposition home or self-care (01) ==
LOC: ANHED 22:59 → ANH3MEDSUR 08-14 00:28
PROVIDERS: Emergency Medicine; Nurse Practitioner; Admitting Provider Internal Medicine; Emergency Provider Emergency Medicine; Visit Provider General Practice
DX: R07.9 Chest pain, unspecified (principal); R47.01 Aphasia; F10.10 Alcohol abuse, uncomplicated; G62.9 Polyneuropathy, unspecified; F12.90 Cannabis use, unspecified, uncomplicated; F41.1 Generalized anxiety disorder; E66.01 Morbid (severe) obesity due to excess calories; Z68.41 Body mass index [BMI] 40.0-44.9, adult
CPT/HCPCS: 36415; 70496; 70498; 70553; 71046; 80053; 80061; 80307; 83690; 84484; 85025; 85610; 85730; 93005; 93306; 95816; 96375; 99285; A9270; A9577; G0378; Q9967

== ENCOUNTER 2024-02-27 09:36 | Outpatient (CLI) | payer BC, SELFPAY ==
--- NOTE | 2024-02-27 09:46 | EST_ITS ---
Patient Info Name: Naya May Age: 54 years : 1970 Gender: Female Ht: 64 in Wt: 214 lbs BSA: 2.14 m2 HR: 81 bpm BP: 110 / 76 mmHg Exam Date: 02/27/2024 10:00 AM Exam Location: Echo Lab Patient Status: Outpatient Admit Date: 02/27/2024 Staff Ordering Physician: Lyndon Connell DO Attending Provider: Lyndon Connell DO Exercise Technologist: MILAN Exercise Physician: Lyndon Connell DO Exam Type: CA stress test treadmill Study Info A treadmill exercise stress test was performed. Summary 1. 1. Negative Ward exercise stress test for ischemic ST changes by ECG criteria. 2. 2. Reduced functional capacity, achieving 7 METs of workload. 3. 3. Appropriate HR response to exercise. 4. 4. Appropriate HR recovery at 1 minute post exercise. 5. 5. No imaging with stress testing. 6. 6. Patient informed of the above results. Protocol: Ward Stress ECG Details Stage: REST Duration (min): 1 min : 23 sec Speed (mph): 0.0 Grade (%): 0 HR (bpm): 83 SBP (mmHg): 110 DBP (mmHg): 76 METS: --- Stage: REST Duration (min): 9 min : 5 sec Speed (mph): 0.0 Grade (%): 0 HR (bpm): 93 SBP (mmHg): 110 DBP (mmHg): 76 METS: --- Stage: STAGE 1 Duration (min): 1 min : 0 sec Speed (mph): 1.7 Grade (%): 10 HR (bpm): 122 SBP (mmHg): 110 DBP (mmHg): 76 METS: --- Stage: STAGE 1 Duration (min): 2 min : 0 sec Speed (mph): 1.7 Grade (%): 10 HR (bpm): 130 SBP (mmHg): 110 DBP (mmHg): 76 METS: --- Stage: STAGE 1 Duration (min): 3 min : 0 sec Speed (mph): 1.7 Grade (%): 10 HR (bpm): 138 SBP (mmHg): 124 DBP (mmHg): 72 METS: --- Stage: STAGE 2 Duration (min): 1 min : 0 sec Speed (mph): 2.5 Grade (%): 12 HR (bpm): 146 SBP (mmHg): 124 DBP (mmHg): 72 METS: --- Stage: STAGE 2 Duration (min): 2 min : 0 sec Speed (mph): 2.5 Grade (%): 12 HR (bpm): 152 SBP (mmHg): 121 DBP (mmHg): 70 METS: --- Stage: STAGE 2 Duration (min): 3 min : 0 sec Speed (mph): 2.5 Grade (%): 12 HR (bpm): 155 SBP (mmHg): 121 DBP (mmHg): 70 METS: --- Stage: STAGE 3 Duration (min): 0 min : 1 sec Speed (mph): 3.4 Grade (%): 14 HR (bpm): 155 SBP (mmHg): 121 DBP (mmHg): 70 METS: --- Stage: RECOVERY Duration (min): 0 min : 47 sec Speed (mph): 0.0 Grade (%): 0 HR (bpm): 144 SBP (mmHg): 133 DBP (mmHg): 71 METS: --- Rest HR: 93 bpm Peak HR: 156 bpm Rest Sys BP: 110 mmHg Peak Sys BP: 133 mmHg Max Pred HR: 166 bpm % Max Pred HR: 94 % Target HR: 141 bpm Max RPP: 20,748 bpm*mmHg Gracia Score: 1 Termination Reason: Reached target heart rate or workload Cardiac Symptoms: Shortness of breath Max ST Seg Deviation: -1.00 mm Total Time: 6 min : 1 sec Rest Sanchez BP: 76 mmHg Peak Sanchez BP: 71 mmHg Angina Score: None Total METS: 7.1 Resting ECG Sinus rhythm. Stress ECG No ST changes. Arrhythmias None. Report Signatures
== END 2024-02-27 09:37 | disposition home or self-care (01) ==
PROVIDERS: Visit Provider Internal Medicine Cardiovascular Disease
DX: R07.9 Chest pain, unspecified (principal)
CPT/HCPCS: 93017

== ENCOUNTER 2024-06-23 11:02 | Outpatient (CLI) | payer BC, SELFPAY ==
[2024-06-23 11:56] LABS: Alanine Aminotransferase 28 U/L (6-35); Albumin Level 4.6 g/dL (3.5-5.1); Alkaline Phosphatase 74 U/L (38-126); Anion Gap 8 mmol/L (4-12); Aspartate Amino Transferase 35 U/L (14-36); Bilirubin,Total 0.7 mg/dL (0.2-1.3); Blood Urea Nitrogen 15 mg/dL (7-17); Calcium 9.2 mg/dL (8.4-10.2); Carbon Dioxide 24 mmol/L (22-30); Chloride 105 mmol/L (98-107); Cholesterol 174 mg/dL (0-200); Estimated Glomerular Filt Rate > 60; Glucose 93 mg/dL (65-110); HDL Direct 77 mg/dL; Potassium 4.7 mmol/L (3.4-5.0); Sodium 137 mmol/L (137-145); Triglycerides 75 mg/dL (<150)
[2024-06-23 12:07] LABS: LDL Cholesterol Direct 71 mg/dL
--- OUTSIDE RECORDS SUMMARY | 2024-06-23 12:47 | XMS_ITS | Clinical Summary ---
Author Organization [facility] [address] Address [facility] [place] [address] Care Team Providers Care Caustic Strength Inspector Name Role Phone Darnell Henry DO Primary Care Provid er Allergies Active Allergy Reactions Criticality Noted Date Comments Codeine Itching Reaction: Itching, , Reaction: Itching, Penicillin Unknown 10/15/2023 Medications aspirin 81 mg chewable tablet Take 1 tablet (81 mg total) by mouth daily 4 Active atorvastatin (LIPITOR) 40 mg tablet Take 1 tablet (40 mg total) by mouth daily 4 Active clopidogreL (PLAVIX) 75 mg tablet Take 1 tablet (75 mg total) by mouth daily 4 Active tirzepatide, weight loss, (Zepbound) 5 mg/0.5 mL pen injector Inject 0.5 mL (5 mg total) under the skin every 7 days 2 mL 11 4 10/23/19 25 Active mirabegron ER (MYRBETRIQ) 25 mg tablet extended release 24 hr 4 Active sulfamethoxazol e-trimethoprim (BACTRIM DS) 800-160 mg per tablet Take 1 tablet (160 mg of trimethoprim total) by mouth 2 (two) times a day 4 Active Active Problems Problem Noted Date Diagnosed Date Shortness of breath 01/09/2024 Assessment & Plan (01/09/2024 9:55 AM CDT): Acute onset of shortness of breath with minimal exertion that came on Saturday. She underwent a PFO closure on 01/03/24. She also started 2 ABX on Saturday for a UTI. Unclear etiology of acute onset shortness of breath at this time. EKG today with stable findings. Chest x ray to assess for appropriate placement of Amplatz occluder device in place and r/o any underlying respiratory etiology. Will get labs with CBC, CMP, NT-proBNP and D-dimer. Echocardiogram when she can. She is also planning to follow up with PCP today. Can discuss alternative ABX if they feel this may be etiology. Encounter for weight management 10/23/2023 Assessment & Plan (10/23/2023 2:04 PM CDT): Relevant chart notes reviewed, including [facility] chart notes if available. I counseled the patient on nutrition: Implementing First Line therapy was discussed. Furthermore, we recommend a diet with a slightly higher high protein content, lower glycemic index with carbohydrate restriction yet without daily energy restriction. This approach will need to a weight loss because of higher satiety sensation. Recommend avoiding food persevered in plastic, eating out or processed food. Avoid eating out and ultraprocessed foods. Recommend fresh/frozen protein and vegetables. Study YES and NO list. I counseled the patient on exercise: Recommend 36 min. cardio daily. Based on availiable data on the secondary prevention of coronary heart disease, stroke and prediabetes, physical activity is potentially as active as many drug interventions.Ayan Stein: BMJ 2013 347:f5577;01/2013; Diabetes Care, Volume 35, Mar 2012. Pharmacotherapy: Reviewed medications; discussed with the patient changes in details, discussed side effects and risks of taking the medications in details with the patient. Patient expressed understanding of the new orders; see attached new treatment and orders. New insurance, zepbound 5mg sent to pharmacy If not on formulary, consider wegovy for ASCVD secondary to stroke, requesting [facility]. Morbid obesity with BMI of 40.0-44.9, adult 10/13 Assessment & Plan (10/23/2023 2:02 PM CDT): Obesity is one of the leading risk factor for mortality. Metabolically healthy obese individuals had 49% increased risk of coronary artery disease, 7% increased risk of cerebrovascular disease and 96% increased risk of heart failure. In other words, even individuals who are normal weight can have metabolic abnormalities and similar risk for cardiac vascular disease events. Thus, the complications that may result from metabolic syndrome and frequently serious and chronic. They include atherosclerosis, diabetes, myocardial infarction, renal disease, cardiovascular events such as stroke, nonalcoholic fatty liver disease, peripheral artery disease, and cardiovascular diseases. His diabetes develops; there is an increased risk of retinopathy, neuropathy, renal disease and amputation of labs. Therefore, treating obesity, obesity related diseases is exceedingly crucial. Improving the hypertrophic adipocytes function and decrease insulin resistance is the main goal of the treatment. Furthermore, an emerging concept that the anti-obesity agents must not only reduce the hypertrophic adipocytes but must also correct the fat dysfunction, adiposopathy. Weight loss is associated with increases in mean suppression of glucose production from baseline, is associated with increase insulin stimulated in glucose disposal from fat-free mass and weight loss increased beta cell function. In other words, weight loss change in hepatic insulin sensitivity and muscle insulin sensitivity, beta cell function and a 24-hour plasma glucose and insulin profiles. Our goal is and decreasing the weight between 16 and 20% which will significantly decrease the risk of morbidity and mortality. TIA (transient ischemic attack) 10/23/2023 Assessment & Plan (10/23/2023 2:02 PM CDT): Hx TIA in June 2023 PFO (patent foramen ovale) 10/23/2023 Overview (10/23/2023): PFO found 06/2023 during TIA work up Assessment & Plan (01/09/2024 9:51 AM CDT): TIA with PFO noted on TTE. She therefore underwent a PFO closure on 01/03/24. On Saturday developed new onset MITCHELL. See plan below for work up on MITCHELL. She will need to stay on plavix for a minimum of 2 months and ASA indefinitely. Will need echo with bubble in next 2-3 months. Assessment & Plan (10/23/2023 2:02 PM CDT): PFO found 06/2023 during TIA work up Follow up with Dr Anthony planned in Nov CRP elevated 10/16/2023 Dietary counseling and surveillance 10/16/2023 Hyperlipidemia 10/16/2023 Electrolyte and fluid disorder 10/16/2023 Metabolic syndrome 10/16/2023 Pruritus 10/16/2023 Vitamin D deficiency 10/16/2023 CKD (chronic kidney disease) 10/15/2023 Myopathy, unspecified 01/18/2015 Fatigue 09/21/2010 Surgical History Surgery Date Site/Laterality Comments CHOLECYSTECTOMY 2009 Cholecystectomy [place] CHOLECYSTECTOMY Cholecystectomy - 2011 (Added by [facility] Conv) PARTIAL HYSTERECTOMY around 2014 Medical History Medical History Date Comments Depression Depression Hx Other Medical back pain TIA (transient ischemic attack) 07/2023 PFO (patent foramen ovale) Hyperlipidemia Migratory pain Family History Medical History Relation Name Comments Diabetes Brother Hypertension Brother Hypertension Mother Cancer Other 1 Family history of Cancer; Hypertension Other 2 Family history of Hypertension; Diabetes Paternal Grandfather Relation Name Status Comments Brother Mother Other 1 Other 2 Paternal Grandfather Social History Tobacco Use Types Packs/Day Years Used Date Smoking Tobacco: Never Smokeless Tobacco: Never Tobacco Cessation:Counseling Given: Not Answered Alcohol Use Standard Drinks/Week Comments Yes 0 (1 standard drink = 0.6 oz pur e alcohol) AUDIT-C Answer Date Recorded Q1: How often do you have a drink containing alc ohol? 2-3 times a week 01/03/2024 Q2: How many drinks containi ng alcohol do you have on a typical day when you are drinking? 5 or 6 01/03/2024 Q3: How often do you have si x or more drinks on one occasion? Never 01/03/2024 Personal Safety Answer Date Recorded Have you ever been in or are you currently in a harmful physical or emotional relationship or is someone making you feel afraid or unsafe? 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 Gender Identity Not on file Sexual Orientation Not on file Obstetrics History Last Filed Vital Signs Vital Sign Reading Time Taken Comments Blood Pressure 119/80 01/09/2024 9:15 AM CDT Pulse 91 01/09/2024 9:15 AM CDT Temperature 36.7 C (98.1 F) 01/03/2024 9:56 AM CDT Respiratory Rate 21 01/03/2024 5:15 PM CDT Oxygen Saturation 98% 01/09/2024 9:15 AM CDT Inhaled Oxygen Concentration - - Weight 101.3 kg (223 lb 6.4 oz) 01/09/2024 9:15 AM CDT Height 163.8 cm (5' 4.5 ) 01/09/2024 9:15 AM CDT Body Mass Index 37.75 01/09/2024 9:15 AM CDT Plan of Treatment Health Maintenance Due Date Last Done Comments Breast Cancer Screening-Mammogram 1970 Cervical Cancer Screening 1970 Colon Cancer Screening-Colonoscopy 1970 Depression Screening 1970 Hepatitis C Screening 1970 DTaP/Tdap/Td Vaccine (1 - Tdap) 1981 Hepatitis B Screening 01/22/1988 Regular Well Visit/Exam 18-64 01/22/1988 Zoster Vaccine (1 of 2) 01/22/2020 Covid-19 Vaccine (4 - 2023-2 5 season) 2023 01/04/2022, 12/27/2020, 12/06/2020 Influenza Vaccine (#1) 2023 Pneumococcal vaccine <65 Aged Out No longer eligible based on patient's age to complete this topic Medical Devices Implanted Type Area Shipyard Helper Device Identifier Shelf Expiration Date Model / Serial / Lot Gonzalez Vascular Occluder Cvasc Pfo Closure Amplatzer Talisman [id number] 9-Pfo-3025 - [id number] - [id number] Implanted:Qty : 1 on 01/03/2024 by Devyn Jerry MD PhD at [facility] Septal Defect Closure Device Atrial Septal Defect Gonzalez Vascular 07/13/2026 9-PFO-302 5 / [id number] / [id number] Gonzalez Vascular System Closure Repair Femoral Artery Suture Mediated Perclose Prostyle 39971-89 - [id number] - [id number] Implanted:Qty : 1 on 01/03/2024 by Devyn Jerry MD PhD at [facility] Vascular Closure Device Right: Groin [employer] Vascular 09/12/2025 [id number] / [id number] / [id number] Gonzalez Vascular System Closure Repair Femoral Artery Suture Mediated Perclose Prostyle 12876-66 - [id number] - [id number] Implanted:Qty : 1 on 01/03/2024 by Devyn Jerry MD PhD at [facility] Vascular Closure Device Left: Groin Gonzalez Vascular 10/12/2025 23171-06 / [id number] / [id number] Insurance YOUnite MD YOUnite MD YOUnite MD Advance Directives For more information, please contact: [phone] * Full Code (Latest Code Status on File) Date Activated Date Inactivated Comments 01/03/2024 2:32 PM 01/03/2024 9:40 PM Care Teams Caustic Strength Inspector Relationship Specialty Start Date End Date Darnell Henry DO [address] [place] [address] [address] [facility] [address] PCP - General Internal Medicine 10/10/23
--- OUTSIDE RECORDS SUMMARY | 2024-06-23 12:47 | XMS_ITS | Referral Summary ---
Author Organization [facility] Address [address] [place] [address] Care Team Providers Care Final Installer Inspector Name Role Phone Molina Montesinos MD Primary Care Provider [phone] Source Comments [facility],non-owned Affiliates and Associated Physician Practices is amultiple site organization consisting of ambulatory clinics and hospital sitesin [place], [place], [place] and [place]. This disclosure is being madepursuant to the Care Everywhere program and may not contain all information available regarding this patient. Last updated 18.[facility] Allergies No known active allergies Medications * Be aware that medications may not be up to date on this document. Alwaysverify current medications with the patient. Medication Sig Dispensed Refills Start Date End Date Status Venlafaxine HCl (EFFEXOR PO) Active methylPREDNISolone (MEDROL DOSEPAK) 4 MG tablet Take by mouth as directed 1 Each 04/18/2019 Active Social History Tobacco Use Types Packs/Day Years Used Date Smoking Tobacco: Never Smokeless Tobacco: Never Sex and Gender Information Value Date Recorded Sex Assigned at Not on file Gender Identity Not on file Sexual Orientation Not on file Last Filed Vital Signs Vital Sign Reading Time Taken Comments Blood Pressure 114/78 04/18/2019 2:41 PM CORPORATE LIBRARIAN Pulse 88 04/18/2019 2:41 PM CORPORATE LIBRARIAN Temperature 37.2 C (99 F) 04/18/2019 2:41 PM CORPORATE LIBRARIAN Respiratory Rate 16 04/18/2019 2:41 PM CORPORATE LIBRARIAN Oxygen Saturation 98% 04/18/2019 2:41 PM CORPORATE LIBRARIAN Inhaled Oxygen Concentration - - Weight 88.9 kg (196 lb) 04/18/2019 2:41 PM CORPORATE LIBRARIAN Height 162.6 cm (5' 4 ) 04/18/2019 2:41 PM CORPORATE LIBRARIAN Body Mass Index 33.64 04/18/2019 2:41 PM CORPORATE LIBRARIAN Plan of Treatment Not on file Care Teams Final Installer Inspector Relationship Specialty Start Date End Date Molina Montesinos MD [address] [place] [address] PCP - General Family Medicine 03/26/18
--- OUTSIDE RECORDS SUMMARY | 2024-06-23 12:47 | XMS_ITS | Continuity of Care Document ---
Author Organization [facility] Address [address] [place] [address] Phone Care Team Providers Care Header Setup Operator Name Role Phone Adalberto Erickson MD Unavailable Unavailabl e Allergies, Adverse Reactions, Alerts Substance Reaction Status Criticality Penicillins Active No Information codeine Active No Information Medications Medication Instructions Dosage Effective Dates (start - stop) Status Comments famotidine 40 mg tablet take 1 tablet by oral route every day at bedtime 40 MG - Active hydroxyzine HCl 10 mg tablet one PO Q HS - Active montelukast 10 mg tablet take 1 tablet by oral route every day in the evening 10 MG - Active Wellbutrin XL 300 mg 24 hr tablet, extended release take 1 tablet by oral route every day 300 MG - Active naltrexone 50 mg tablet take 1 tablet by oral route every day 50 MG - Active phentermine 15 mg capsule take 1 capsule by oral route every day before breakfast 15 MG - Active Effexor XR 37.5 mg capsule,extended release take 1 capsule by oral route every day with food 37.5 MG - Active Mucinex D 60 mg-600 mg tablet,extended release take 1 tablet by oral route every 12 hours as needed - Active Procedures Procedure Date OFFICE/OUTPATIENT VISIT NEW Advance Directives Directive Yes / No Effective Date File Name No Information Encounters Encounter Description Practice Location Reason(s) For Visit Diagnoses Date Provider Providers Copied on Encounter [facility] , [address], [place], [address], [place] tel:[phone] [facility] No Information 2 Dre Glover. [address], [place], [place], [id number]. tel:[phone] OFFICE/OUTPA TIENT VISIT NEW [facility] , [address], [place], [address], tel:[phone] [facility] Follow up (chief complaint) Body mass index [BMI] 36.0-36.9, adultItchingAll ergic dermatitis due to other chemical productNeuroder matitisBrachial plexus neuralgiaOther allergic rhinitis Dec- 2 Dre Hamsa. [address], [place], [place], [address]. tel:[phone] Referring Provider: Kiera Mccurdy [address] [place] [address] [address], [place], [address]. tel:[phone] Family History Family Member Type Diagnosis Age At Onset No Information Immunizations Vaccine Date Status Comments SARS-COV-2 (COVID-19) vaccin e, mRNA, spike protein, LNP, preservative free, 30 mcg/0.3mL dose (Aha Mobile) administered Note: nov/feb and ; Source: Other Provider Payers Payer name Insurance type Covered green party ID Authorgreciaa jim(s) [facility] All Savers Plan OT [id number] Social History Type Description Quantity Date Captured Comments Sex Female Smoking Status No Information Chief Complaint And Reason For Visit No Information Reason For Referral Reason For Referral No Information History Of Present Illness Encounter Date Complaint History Of Prese nt Illness Follow up Referred by Dr.S arango patient is really trying to lose weight. She has a lot of bruising and scarring all over her body. She was diagnosed with small fiber neuropathy after a muscle biopsy and nerve conduction study. She was on gabapentin and stopped it because of weight gain.Over both her arms she has this intense itching almost feels like a burning pinprick sensation. It did not get better with the gabapentin and has been going on for six years would come and go, and has the worst recently and has been constant in the past month. The itching is extremely severe affecting her sleep. I she started taking tzls-iem-owxmgry liquid collagen which could have flared the top. She has tried multiple medications including topicals which have not helped.Although I don't have the results patient states her thyroid, CBC, CMP and vitamin D are perfect. she has no past history of atopic dermatitis or eczema. She colors her hair every four weeks, she has acrylic plastic nails with metal and paint on them. She does this every two weeks. Cheap jewelry upon contact makes her break out. Patient has a lot of jewelry on her. In addition she wears make up including eye make up which she removes with the make up Removing wipesNo supplements.She does have cervical neck pain.The itching spares her face, Peter, abdomen, back, feet, legs. Functional Status Date Functional Assessmen t No Information Instructions Date Instruction Additional Infor mation Avoid any oral stero ids and topical steroids for at least 7 days before the patch test. Patch test will not be placed if there is sun burn, tanning lotion or exzema like skin on the back. Antihistamines can be continued as long as the patch test is in place; do not wet the area, if the patch falls off, do not re-apply the patch test. Related to Allergic dermatitis due to other chemical product Avoid antihistamines including oral, topical, eye drops and nasal sprays; avoid using topical steroids on your back; no oral steroids for 7 days before the skin test. Related to Other allergic rhinitis Giving encouragement to exercise Related to Body mass index [BMI] 36.0-36.9, adult Assessments Type Assessment Date No Information Patient Care Teams Name Effective Dates (start - stop) Status Members No Information
--- OUTSIDE RECORDS SUMMARY | 2024-06-23 12:47 | XMS_ITS | Referral Summary ---
Author Organization [facility] [address] Address [facility] [place] [address] Care Team Providers Care Computing Machine Operator Name Role Phone Darnell Henry DO Primary [...] wegovy for ASCVD secondary to stroke, requesting [facility]. 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 Gender Identity Not on file Sexual Orientation [...] 01/09/2024 9:15 AM CDT Plan of Treatment Not on file Medical Devices Implanted Type Area Careers Counsellor Device Identifier Shelf Expiration Date Model / Serial / Lot Gonzalez Vascular Occluder Cvasc Pfo Closure Katharinaatztemitope Collieran [id number] 9-Pfo-3025 - [id number] - [id number] Implanted:Qty : 1 on 01/03/2024 by Devyn Jerry MD PhD at [facility] Septal Defect Closure Device Atrial Septal Defect Gonzalez Vascular 07/13/2026 9-PFO-302 5 / [id number] / [id number] Gonzalez Vascular System Closure Repair Femoral Artery Suture Mediated Perclose Prostyle 12054-38 - [id number] - [id number] Implanted:Qty : 1 on 01/03/2024 by Devyn Jerry MD PhD at [facility] Vascular Closure Device Right: Groin Gonzalez Vascular 09/12/2025 37570-73 / [id number] / [id number] Gonzalez Vascular System Closure Repair Femoral Artery Suture Mediated Perclose Prostyle 51042-79 - [id number] - [id number] Implanted:Qty : 1 on 01/03/2024 by Devyn Jerry MD PhD at [facility] Vascular Closure Device Left: Groin Gonzalez Vascular 10/12/2025 76234-73 / [id number] / [id number] Insurance [facility] Issue [place] Issue [place] Advance Directives For more information, please contact: [phone] * Full Code (Latest Code Status on File) Date Activated Date Inactivated Comments 01/03/2024 2:32 PM 01/03/2024 9:40 PM Care Teams Computing Machine Operator Relationship Specialty Start Date End Date Darnell Henry DO [address] [place] [address] DR STANLEY [address] [place] [id number] PCP - General Internal Medicine 10/10/23
--- OUTSIDE RECORDS SUMMARY | 2024-06-23 12:47 | XMS_ITS | Clinical Summary ---
Author Organization [facility] Address [address] [place] [address] Care Team Providers Care Professor Of Mechanical Engineering Name Role Phone Molina Montesinos MD Primary Care Provider [phone] Source Comments [facility],non-owned Affiliates and Associated Physician Practices is amultiple site organization consisting of ambulatory clinics and hospital sitesin [place], [place], [place] and [place]. This disclosure is being madepursuant to the Care Everywhere program and may not contain all information available regarding this patient. Last updated 18.[facility] Allergies No known active allergies Medications * [...] Comments Blood Pressure 114/78 04/18/2019 2:41 PM FIRE ALARM REPAIRER Pulse 88 04/18/2019 2:41 PM FIRE ALARM REPAIRER Temperature 37.2 C (99 F) 04/18/2019 2:41 PM FIRE ALARM REPAIRER Respiratory Rate 16 04/18/2019 2:41 PM FIRE ALARM REPAIRER Oxygen Saturation 98% 04/18/2019 2:41 PM FIRE ALARM REPAIRER Inhaled Oxygen Concentration - - Weight 88.9 kg (196 lb) 04/18/2019 2:41 PM FIRE ALARM REPAIRER Height 162.6 cm (5' 4 ) 04/18/2019 2:41 PM FIRE ALARM REPAIRER Body Mass Index 33.64 04/18/2019 2:41 PM FIRE ALARM REPAIRER Plan of Treatment Health Maintenance Due Date Last Done Comments COLOGUARD (AGES 45-75) - COL ON CA SCREENING 1970 COLON MONITORING 1970 COLONOSCOPY - COLON CA SCREENING 1970 CT COLONOGRAPHY - COLON CA SCREENING 1970 Colorectal Cancer Screening 1970 FIT - COLON CA SCREENING 1970 FLEX SIG - COLON CA SCREENING 1970 LIPID TESTING 1970 MAMMOGRAM 1970 PAP SMEAR 1970 HIV SCREENING 1985 HEPATITIS C SCREENING 01/17/1988 DTAP/TDAP/TD VACCINES (1 - Tdap) 1989 HEPATITIS B VACCINE (1 of 3 - 19+ 3-dose series) 1989 SCREENING FOR DIABETES 04/18/2019 PNEUMOCOCCAL VACCINE 50+ (1 of 1 - PCV) 01/22/2020 ZOSTER VACCINE (1 of 2) 01/22/2020 COVID-19 VACCINE (1 - 2023-2 5 season) 2023 INFLUENZA VACCINE (#1) 2023 DEPRESSION SCREENING 04/15/2024 HIB VACCINE Aged Out No longer eligi ble based on patient's age to complete this topic HPV VACCINE Aged Out No longer eligi ble based on patient's age to complete this topic MENINGOCOCCAL (Group B) VACCINE Aged Out No longer eligible based on patient's age to complete this topic MENINGOCOCCAL VACCINE Aged Out No marcos abhinav eligible based on patient's age to complete this topic PNEUMOCOCCAL VACCINE Aged Out No long er eligible based on patient's age to complete this topic Care Teams Professor Of Mechanical Engineering Relationship Specialty Start Date End Date Molina Montesinos MD [address] [place] [address] PCP - General Family Medicine 03/26/18
--- OUTSIDE RECORDS SUMMARY | 2024-06-23 12:47 | XMS_ITS | Patient Health Summary ---
Author Organization [facility] Address [address] 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 This disclosure is being madepursuant to the Care Everywhere program and may not contain all information available regarding this patient. Last updated 18.[facility] Allergies No known active allergies Medications * Be aware that medications may not be up to date on this document. Alwaysverify current medications with the patient. 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 Temperature 37.2 C (99 F) 04/18/2019 2:41 PM 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 Respiratory Rate 16 04/18/2019 2:41 PM 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 Oxygen Saturation 98% 04/18/2019 2:41 PM 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 Inhaled Oxygen Concentration - - Weight 88.9 kg (196 lb) 04/18/2019 2:41 PM 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 Height 162.6 cm (5' 4 ) 04/18/2019 2:41 PM 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 Body Mass Index 33.64 04/18/2019 2:41 PM 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 Procedures * STREP A SCREEN - POINT OF CARE (AMB) STL(Performed 03/26/2018) Performed for Acute ethmoidal sinusitis, recurrence not specified Results * STREP A SCREEN (03/26/2018) Strep A Rapid POCT Negative Negative Strep A Internal Control Present Lot # [id number] Expiration Date 08/07/19 Throat ENTIRE THROAT (SURFACE REGION OF NECK) / Unknown 03/26/2018 Kiarra Rachel [employer] 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
== END 2024-06-23 11:03 | disposition home or self-care (01) ==
LOC: ANHLAB 11:03
PROVIDERS: Visit Provider Internal Medicine Cardiovascular Disease
DX: E78.5 Hyperlipidemia, unspecified (principal)
CPT/HCPCS: 36415; 80053; 80061